=== PATIENT | male | born 1980 | race Caucasian/White ===

== ENCOUNTER 2018-08-01 19:31 | Emergency (ER) | payer BC ==
[~2018-08-01] VITALS: Ht 175.3 cm; Wt 89.4 kg
[2018-08-01 19:37] VITALS: Ht 175.3 cm; Wt 89.4 kg
[2018-08-01 21:20] VITALS: BP 121/74
== END 2018-08-01 21:20 | disposition home or self-care (01) ==
LOC: ED 19:31
DX: H10.212 Acute toxic conjunctivitis, left eye (principal)
CPT/HCPCS: J7030; V2632